=== PATIENT | male | born 2000 | race Caucasian/White ===

== ENCOUNTER 2021-10-26 17:35 | Emergency (ER) | payer OTHER, SELFPAY ==
[2021-10-26 17:52] VITALS: BP 128/63; PULSE 64; RESP 16; TEMP 36.7; O2SAT 100
--- NOTE | 2021-10-26 18:12 | ED.SKABFB ---
HPI - Skin/Abscess/Foreign Bdy General Stated complaint: possible poison kiki on left arm Time Seen by Provider: 10/26/21 18:14 Source: patient Mode of arrival: ambulatory Limitations: no limitations History of Present Illness HPI narrative: Mr. Joseph is a 21-year-old male patient presenting to the clinic today with complaints of possible poison kiki to bilateral arms and on his abdomen. He also notes that he thinks he has some on his lips. He [place] in [place] the [place]. Related Data Allergies Allergy/AdvReac Type Severity Reaction Status Date / Time No Known Allergies Allergy Verified 01/12/19 14:48 Review of Systems Review of Systems: Pertinent positives per HPI. Patient denies any fever, chills, headache, visual changes, dizziness, cough, runny nose, sore throat, shortness of breath, chest pain, palpitations, nausea, vomiting, diarrhea, constipation, abdominal pain, or any urinary issues. [facility] Family History Family History Mother Rheumatoid arthritis Social History Social History Smoking status: Never smoker Alcohol intake: never Comments At the time of my signature, I reviewed and agree with the nursing past medical, surgical, social, and family history. There is no relevant family history pertinent to the patient complaint. Exam Narrative: General: Well-developed, well nourished, in no apparent distress Head: Normocephalic, atraumatic. Cardio: Regular rate and rhythm, s1 and s2 normal, no murmur appreciated. Resp: Clear to auscultation bilaterally, no rhonchi, rales, wheezing or rubs. Integumentary: [place]cd[place], warm, and dry, intact without lesion, red raised itchy blistered rash to bilateral forearms and has a small patch above the umbilicus on the abdomen Course Course Emergency Course: Portions of this record may have been created with voice recognition software. Level of Care: Express Care Visit Vital Signs Vital signs: Vital Signs Temperature 36.7 C 10/26/21 17:52 Pulse Rate 64 10/26/21 17:52 Respiratory Rate 16 10/26/21 17:52 Blood Pressure 128/63 10/26/21 17:52 Pulse Oximetry 100 10/26/21 17:52 Oxygen Delivery Room Air 10/26/21 17:52 Temperature 36.7 C 10/26/21 17:52 Pulse Rate 64 10/26/21 17:52 Respiratory Rate 16 10/26/21 17:52 Blood Pressure 128/63 10/26/21 17:52 Pulse Oximetry 100 10/26/21 17:52 Oxygen Delivery Room Air 10/26/21 17:52 Vital signs reviewed MDM - Skin/Abscess/Foreign Bdy MDM Narrative Medical decision making narrative: At the time of visit patient is resting comfortably on the exam table. I suspect the patient has contact dermatitis due to poison kiki. Supportive measures were discussed with the patient he voiced understanding of discharge instructions. We will send in a prescription for some prednisone and some triamcinolone cream. Differential Diagnosis Differential diagnosis: Likely abscess of skin or subcutaneous tissue, urticaria, eczema and contact dermatitis Discharge Plan Discharge Clinical Impression: Allergic contact dermatitis due to plant Patient Disposition: Home, Self-Care Condition: Stable Instructions: Antibiotic Form, Poison Kiki (ED) Additional Instructions: Take prednisone and triamcinolone cream as prescribed Avoid scratching Avoid hot showers May take Benadryl 25 to 50 mg every 6 hours as needed May use calamine lotion Follow-up with your PCP in 3 to 5 days if symptoms persist or sooner if they worsen Prescriptions: New prednisone 20 mg tablet 40 mg PO DAILY 5 Days Qty: 10 0RF triamcinolone acetonide 0.1 % cream 1 applic topical BID 7 Days Qty: 30 0RF Follow-up/Referrals: PHYSICIAN,GENERAL ACCOUNTING MANAGER [Primary Care Provider] - Quality NIHSS Nursing Documentation ED NIHSS nursing documentation: reviewed/agree
== END 2021-10-26 18:28 | disposition home or self-care (01) ==
PROVIDERS: Emergency Provider Nurse Practitioner Family
DX: L23.7 Allergic contact dermatitis due to plants, except food (principal)
CPT/HCPCS: 99213; G0463

== ENCOUNTER 2024-07-16 09:19 | Emergency (ER) | payer OTHER, SELFPAY ==
--- NOTE | ~2024-07-16 | XR_ITS ---
PA, oblique, and lateral views of the left fifth finger Clinical history laceration FINDINGS: No fracture or dislocation seen. There are a few tiny radio dense foreign bodies at the uln ar, dorsal aspect of the fifth PIP joint region. IMPRESSION: A few tiny radiodense foreign bodies at the dorsal, ulnar aspect of the fifth PIP joint region. No fracture or dislocation. Reviewed, dictated and finalized at location . IMPRESSION: A few tiny radiodense foreign bodies at the dorsal, ulnar aspect of the fifth P IP joint region. No fracture or dislocation.
--- OUTSIDE RECORDS SUMMARY | 2024-07-16 09:22 | XMS_ITS | Clinical Summary ---
Author Organization [facility] Address [address] [place] [address] Care Team Providers Care Parts Consultant Name Role Phone Sherri Bethea MD Unavailable Dang Lira MD Primary Care Provider [phone] Source Comments [facility],non-owned Affiliates and Associated Physician Practices is amultiple site organization consisting of ambulatory clinics and hospital sitesin [place], [place] and [place]. This disclosure is being madepursuant to the Care Everywhere program and may not contain all information available regarding this patient. Last updated 17.[facility] Allergies No known active allergies Medications * Be aware that medications may not be up to date on this document. Alwaysverify current medications with the patient. Fexofenadine HCl (BETO PO) Take by mouth. Activ e fluticasone propionate (FLONASE) 50 MCG/ACT nasal spray Ulysses 1 Ulysses into each nostril once daily 1 Bottle 3 6 Active Additional Information Patient not taking.Reported on 06/06/2018 mupirocin (BACTROBAN) 2 % ointment 3 times daily 0 9 Active mupirocin (BACTROBAN) 2 % ointment Apply to affected area 3 times daily 22 g 9 Active Active Problems Problem Noted Date Diagnosed Date Scoliosis 08/22/2011 Immunizations Immunization Administration Dates Next Due DTaP VACCINE IM (6wk-6yrs) 10/08/2003,,1999,07/31,1999 HEP A PEDS 2 DOSE 07/22/2006,12/14/2004 HEP B VACCINE, PED/ADOL 01/02/2000,1999, HIB BOOSTER 10/02/2000, 0,1999,05/29 Human Papilloma Virus Roby valent Vaccine 06/15/2013,12/22/2012 INFLUENZA VACCINE, QUADR. (F LUZONE; FLULAVAL; FLUARIX; AFLURIA QUADRIVALENT; 6MO+), 0.5 ML (IIV4) 10/30/2016 Influenza Nasal 02/02/2012,12/21/2010 ERASTO VACCINE QUAD LAIV4 PF NASAL 12/22/2012 MENINGOCOCCAL ACWY (MCV4P) VAC IM 10/30/2016, MMR 10/08/2003,04/01/2000 POLIO IPV 10/08/2003, 1,1999,05/29 PPD 10/24/2004,04/01/2000 TDAP (7yrs+) 10/29/2016,06/04/2013,05/15/2010 VARICELLA 07/22/2006,07/01/2000 Social History Tobacco Use Types Packs/Day Years Used Date Smoking Tobacco: Unknown Alcohol Use Standard Drinks/Week Comments Not Asked 0 (1 standard drink = 0.6 oz pur e alcohol) Sex and Gender Information Value Date Recorded Sex Assigned at Not on file 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 Gender Identity Not on file Sexual Orientation Not on file Last Filed Vital Signs Vital Sign Reading Time Taken Comments Blood Pressure 132/78 10/30/2016 3:58 PM CDT Pulse 60 10/30/2016 3:58 PM CDT Temperature 36.4 C (97.6 F) 06/06/2018 10:13 AM CDT Respiratory Rate - - Oxygen Saturation - - Inhaled Oxygen Concentration - - Weight 78.1 kg (172 lb 3.2 oz) 06/06/2018 10:13 AM CDT Height 183.5 cm (6' 0.25 ) 10/30/2016 3:58 PM CD T Body Mass Index - - Plan of Treatment Health Maintenance Due Date Last Done Comments HIV SCREENING 2014 HEPATITIS C SCREENING 03/24/2017 COVID-19 VACCINE ( season) 2023 DEPRESSION SCREENING 03/04/2024 INFLUENZA VACCINE (Season Ended) 2024 10/30/2016, 12/22/2012, 02/02/2012, Additional history exists DTAP/TDAP/TD VACCINES (9 - Td or Tdap) 10/29/2026 10/29/2016, 06/04/2013, 05/15/2010, Additional history exists ZOSTER VACCINE (1 of 2) 2049 HEPATITIS B VACCINE Completed 01/02/2000, 1999, 1999 HIB VACCINE Completed 10/02/2000, 09/03, 1999, Additional history exists HPV VACCINE Completed 06/15/2013, 12/22/2012 MENINGOCOCCAL GROUPS A/C/Y/W VACCINE Completed 10/30/2016, 05/15/2010 MENINGOCOCCAL (Group B) VACCINE SHARED DECISION-MAKING Aged Out No longer eligible based on patient's age to complete this topic PNEUMOCOCCAL VACCINE Aged Out No long er eligible based on patient's age to complete this topic Goals Goal Patient Goal Type Associated Problems Recent Progress Patient-Stated? Author Use safety retraint in car Lifestyle On track( 017 4:01 PM CDT) No Evelyne Mcnamara, SHARON Insurance Care Teams Parts Consultant Relationship Specialty Start Date End Date Sherri Bethea MD PCP - Pediatrics 03/11/09 Dang Lira MD PCP - General Pediatrics 11/11/14
[2024-07-16 09:30] VITALS: BP 119/73; PULSE 59; RESP 16; TEMP 37.1; O2SAT 98
--- NOTE | 2024-07-16 09:35 | ED_ITS ---
HPI - Wound/Laceration General Chief Complaint: Wound/Laceration Stated Complaint: finger cut Time Seen by Provider: 07/16/24 09:30 Source: patient and RN notes reviewed Mode of arrival: ambulatory Limitations: no limitations History of Present Illness HPI narrative: 24-year-old male presents Express Care complaining of left pinky laceration. Patient stated earlier today approximately 2.5 hours ago he was at work when he accidentally lacerated his left pinky on a sharp and jagged piece of metal. Patient denies any other injuries. Patient denies any numbness or tingling to his left pinky. Patient states he can move his pinky without issue. Patient is unsure if his tetanus is up-to-date. Related Data Allergies Allergy/AdvReac Type Severity Reaction Status Date / Time No Known Allergies Allergy Verified 07/16/24 09:33 Review of Systems Review of Systems: CONSTITUTIONAL: Denies fever, chills, or sweats. EYES: Denies visual changes, redness, or discharge. ENT: Denies rhinorrhea, congestion, sore throat, or otalgia. CARDIOVASCULAR: Denies chest pain, palpitations, or edema. RESPIRATORY: Denies cough or dyspnea. GASTROINTESTINAL: Denies abdominal pain, nausea, vomiting, or diarrhea. GENITOURINARY: Denies dysuria or hematuria. SKIN: Denies rash or itching. Positive for laceration. MUSCULOSKELETAL: Denies back pain, joint pain, or myalgia. NEUROLOGIC: Denies headache, numbness, or weakness. PSYCHIATRIC: Denies anxiety or depression. All other systems reviewed are negative, except as documented in HPI. PMFSH Family History Family History Mother Rheumatoid arthritis Social History Social History Smoking status: Never smoker Alcohol intake: never Comments At the time of my signature, I reviewed and agree with the nursing past medical, surgical, social, and family history. There is no relevant family history pertinent to the patient complaint. Exam Narrative: GENERAL: This is a well-nourished, well-developed adult, in no apparent di stress. They are non ill-appearing, nontoxic appearing. HEAD: normocephalic, atraumatic. EYES: Sclera clear/white. Conjunctiva normal. Vision is grossly intact. Extraocular movements intact EARS: External ears normal, Hearing grossly intact. NOSE: External nose normal THROAT: Mucous membranes moist, NECK: Normal range of motion CARDIOVASCULAR: Regular rate and rhythm RESPIRATORY: Respiratory rate normal, respiratory effort nonlabored, no respiratory distress SKIN: Left pinky: Linear laceration measuring approximately 1.5 cm located to the dorsal surface of the left pinky near the PIP. Hemostasis achieved prior to arrival. Normal sensation. Normal range of motion against resistance through flexion and extension at the DIP, PIP, and MCP. Normal range of motion of left pinky. Neurovascular status intact distal to injury. Radial pulse 2 +and palpable. Ulnar and radial nerve distribution intact. No obvious deformity, swelling, or bruising to left pinky. No obvious foreign body visualized. NEURO: awake, alert, and oriented to person, place and time. There were no obvious focal neurologic abnormalities. EXTREMITIES: No joint tenderness, effusion, or edema noted. BACK: Nontender without deformity. Course Course Emergency Course: Portions of this record may have been created with voice recognition software Level of Care: Express Care Visit Vital Signs Vital signs: Vital Signs Temperature 98.8 F 07/16/24 09:30 Pulse Rate 59 L 07/16/24 09:30 Respiratory Rate 16 07/16/24 09:30 Blood Pressure 119/73 07/16/24 09:30 Pulse Oximetry 98 07/16/24 09:30 Oxygen Delivery Room Air 07/16/24 09:30 Temperature 98.8 F 07/16/24 09:30 Pulse Rate 59 L 07/16/24 09:30 Respiratory Rate 16 07/16/24 09:30 Blood Pressure 119/73 07/16/24 09:30 Pulse Oximetry 98 07/16/24 09:30 Oxygen Delivery Room Air 07/16/24 09:30 Reviewed Procedures Laceration Laceration 1: Date: 07/16/24 Time: 10:50 Site: hand Side (If applicable): left (Pinky) Size (cm): 1.5 Description: linear Depth: simple, single layer Local Anesthetic: lidocaine 1% (5th digit digital block and infiltration to the laceration) Amount of anesthesia used (mL): 4 Pre-repair: wound explored, irrigated extensively and minor debridement (Small metal fragments removed) ====== Skin Level ====== Skin layer closed with: nylon Size (cm): 5-0 Number of sutures: 4 Technique: simple, interrupted ====== Subcutaneous Layer ====== ====== Muscle Layer ====== ====== Tendon Layer ====== Dressing: Non adherent, bulky dressing, with middle finger splint to keep finger straight. Patient tolerated procedure well. MDM - Wound/Laceration MDM Narrative Medical decision making narrative: X-ray revealed no fracture or acute injury to pinky. X-ray showed small radiodense fragments near the laceration. Metal fragments were irrigated and removed out of the wound bed. No other metal fragments are identified. Successful laceration repair to left pinky. For sutures were used to close the laceration. Patient's tetanus was updated. Will prophylactically treat with antibiotics. Discussed physical exam findings. Advised supportive measures and signs/symptoms to go to the ER. Pt is appropriate for outpt treatment and f/u. Differential Diagnosis Differential diagnosis: Likely laceration, avulsion of skin and other (Pinky fracture) Imaging Data Radiologist's impression: ITS Impressions Finger X-Ray 07/16/24 10:16 IMPRESSION: A few tiny radiodense foreign bodies at the dorsal, ulnar aspect of the fifth PIP joint region. No fracture or dislocation. Critical Care Time Critical Care Time Critical Care Time: No Discharge Plan Discharge Clinical Impression: Laceration of left little finger Qualifiers: Encounter type: initial encounter Damage to nail status: without damage Foreign body presence: with foreign body Qualified Code(s): S61.227A - Laceration with foreign body of left little finger without damage to nail, initial encounter Patient Disposition: Home Condition: Stable Instructions: Antibiotic Form, Care For Your Stitches (ED) Additional Instructions: Your x-ray is negative for any fracture or acute findings the left pinky. It is noted there was very tiny metal fragments in the wound. I was able to remove most of the metal fragments. You will need to keep the sutures in for 10-14 days. You had 4 sutures placed today. Wear the dressing that has been applied for the first 24 hours to allow a scab to start forming. After this, you may remove and wash as normal with soap and water. Do NOT wash with peroxide or alcohol. Do NOT apply antibiotic ointment. Do not scrub or soak the wound. Wear metal finger splint to keep your finger straight to prevent this sutures from being damaged. Avoid dirty water such as dish washing, bath tub soaks, hot tubs, pools, lakes, [place], creeks, until the wound has healed completely the sutures are removed. Take the antibiotics as directed. Your tetanus was updated. Take tylenol or ibuprofen as needed for pain. Follow-up with primary care provider in 3-5 days. If you develop any numbness or tingling, increased redness, swelling, discharge, fevers or any other concerns please go to the ER immediately. Patient Language: Hungarian Prescriptions: New cefuroxime axetil 500 mg tablet 500 mg PO BID 7 Days Qty: 14 0RF Follow-up/Referrals: UNKNOWN,DOCTOR [Primary Care Provider] - Stand Alone Forms: Work/School Release IP Time of Disposition: 11:08
[2024-07-16] MEDS: TETANUS,DIPHTHERIA,AC PERTUSSIS ADULT (0.5 ML) BOOSTRIX IM (09:46)
== END 2024-07-16 11:10 | disposition home or self-care (01) ==
DX: S61.227A Laceration with foreign body of left little finger without damage to nail, initial encounter (principal); Z23 Encounter for immunization; W26.8XXA Contact with other sharp object(s), not elsewhere classified, initial encounter
CPT/HCPCS: 12041; 73140; 90471; 90715; 99213; G0463; J2003